=== PATIENT | male | born 1960 | race Caucasian/White ===

== ENCOUNTER 2017-08-23 21:48 | Inpatient (IN) | payer BC ==
[~2017-08-23] VITALS: Ht 167.6 cm; Wt 82.1 kg
[2017-08-23 21:54] VITALS: BP_SYST 164
[2017-08-23] MEDS ORDERED: NACL 0.9% 1,000 ML IV ONE ×2 (22:00→23:15)
[2017-08-23] MEDS ORDERED: LABETALOL 100 MG/ 20ML VIAL IVP ONE (22:00)
[2017-08-23] MEDS ORDERED: ASPIRIN 325 MG TABLET PO ONE (22:00)
[2017-08-23] MEDS ORDERED: DILTIAZEM HCL 25 MG/5 ML VIAL IVP ONE ×2 (22:15→22:45)
[2017-08-23 22:17] LABS: BASOPHILS # (AUTO) 0.1 K/uL (0.0-0.2); BASOPHILS % (AUTO) 1.8 % (0.0-2.0); EOSINOPHILS # (AUTO) 0.1 K/uL (0.0-0.4); EOSINOPHILS % (AUTO) 2.1 % (0.0-4.0); HEMATOCRIT 43.3 % (36-54); LYMPHOCYTES # (AUTO) 2.1 K/uL (1.0-5.5); LYMPHOCYTES % (AUTO) 42.6 % (20.5-51.5); MEAN CORPUSCULAR HEMOGLOBIN 32 pg (27-31); MEAN CORPUSCULAR HGB CONC 35 % (32-36); MEAN CORPUSCULAR VOLUME 93 fL (79.0-98.0); MONOCYTES # (AUTO) 0.5 K/uL (0.0-1.0); MONOCYTES % (AUTO) 9.7 % (1.7-9.3); NEUTROPHILS # (AUTO) 2.2 K/uL (1.8-7.7); NEUTROPHILS % (AUTO) 43.8 % (40.0-70.0); PLATELET COUNT (AUTO) 188 K/uL (130-430); RED BLOOD CELL COUNT(AUTO) 4.68 MIL/uL (4.2-6.2); RED CELL DISTRIBUTION WIDTH 12.2 % (9.0-15.0)
[2017-08-23 22:26] LABS: ANION GAP 15 (5-15); CALCIUM 8.2 mg/dL (8.4-11.0); CHLORIDE 103 mmol/L (98-107); CREATININE 1.16 mg/dL (0.55-1.30); GLUCOSE 107 mg/dL (70-99); POTASSIUM 3.5 mmol/L (3.5-5.1); SODIUM SERUM 141 mmol/L (136-145); UREA NITROGEN, BLOOD 19 mg/dL (8-21)
[2017-08-23 22:27] LABS: GFR AFRICAN AMERICAN 83 mL/min (>90)
[2017-08-23 22:35] LABS: ALANINE AMINOTRANSFERASE 48 U/L (12-78); ALBUMIN 4.1 g/dL (3.4-4.8); ASPARTATE AMINOTRANSFERASE 44 U/L (10-37); TOTAL BILIRUBIN 0.5 mg/dL (0.0-1.0)
[2017-08-23] MEDS ORDERED: LOSA100T11 PO (22:54)
[2017-08-23] MEDS ORDERED: LIP20 PO (22:54)
[2017-08-23] MEDS ORDERED: SILD50TA PO (22:54)
[2017-08-23] MEDS ORDERED: ASPI-1063 PO (22:54)
[2017-08-23] MEDS ORDERED: OMEP20CA10 PO (22:54)
[2017-08-23] MEDS ORDERED: AMIODARONE HCL 150 MG in D5W 97 ML IV ONE (23:00)
[2017-08-23] MEDS ORDERED: AMIODARONE HCL 150 MG/3ML VIAL ONE (23:03)
[2017-08-23] MEDS ORDERED: ACETAMINOPHEN 325 MG TABLET PO PRN (23:30)
[2017-08-23 23:43] VITALS: BP_SYST 122
[2017-08-23 23:43] LABS: BILIRUBIN,URINE NEGATIVE (NEGATIVE); BLOOD, URINE NEGATIVE (NEGATIVE); CLARITY/URINE CLEAR (CLEAR); COLOR,URINE YELLOW (YELLOW); GLUCOSE,URINE NEGATIVE (NEGATIVE); KETONES,URINE NEGATIVE (NEGATIVE); LEUKOCYTE ESTERASE ,URINE NEGATIVE (NEGATIVE); NITRITE, URINE NEGATIVE (NEGATIVE); PROTEIN URINE NEGATIVE (NEGATIVE); UROBILINOGEN,URINE 0.2 (0.2-1.0)
[2017-08-23 23:49] VITALS: BP_SYST 117
[2017-08-24] VITALS (19 sets, daily range): BP systolic 84–121
[2017-08-24 00:02] LABS: BARBITURATE, URINE NEGATIVE (NEG <=200); BENZODIAZEPINE, URINE NEGATIVE (NEG <=150); CANNABINOID, URINE NEGATIVE (NEG <=50); COCAINE, URINE NEGATIVE (NEG <=150); METHAMPHETAMINES SCREEN,URINE NEGATIVE (NEG <=500); OPIATE, URINE NEGATIVE (NEG <=100); PHENCYCLIDINE SCREEN,URINE NEGATIVE (NEG <=25); UR TRICYCLIC ANTIDEPRESSANTS NEGATIVE (NEG <=300); URINE AMPHETAMINE NEGATIVE (NEG <=500); URINE METHADONE NEGATIVE (NEG <=200); URINE OXYCODONE SCREEN NEGATIVE (NEG <=100); URINE PROPOXYPHENE SCREEN NEGATIVE (NEG <=300)
[2017-08-24] MEDS ORDERED: AMIODARONE HCL 200 MG TABLET ONE (00:21)
[2017-08-24] MEDS: AMIODARONE HCL 200 MG TABLET PO ONE ×2 (00:37→05:05)
[2017-08-24 06:02] LABS: ANION GAP 9 (5-15); CALCIUM 7.9 mg/dL (8.4-11.0); CHLORIDE 107 mmol/L (98-107); CREATININE 1.12 mg/dL (0.55-1.30); GLUCOSE 110 mg/dL (70-99); SODIUM SERUM 141 mmol/L (136-145); UREA NITROGEN, BLOOD 18 mg/dL (8-21)
[2017-08-24 06:08] LABS: BASOPHILS # (AUTO) 0.1 K/uL (0.0-0.2); BASOPHILS % (AUTO) 1.6 % (0.0-2.0); EOSINOPHILS # (AUTO) 0.1 K/uL (0.0-0.4); EOSINOPHILS % (AUTO) 1.5 % (0.0-4.0); HEMOGLOBIN 14.5 g/dL (14.0-18.0); LYMPHOCYTES # (AUTO) 1.6 K/uL (1.0-5.5); LYMPHOCYTES % (AUTO) 33.7 % (20.5-51.5); MEAN CORPUSCULAR HEMOGLOBIN 31 pg (27-31); MEAN CORPUSCULAR HGB CONC 34 % (32-36); MEAN CORPUSCULAR VOLUME 93 fL (79.0-98.0); MONOCYTES # (AUTO) 0.5 K/uL (0.0-1.0); MONOCYTES % (AUTO) 10.1 % (1.7-9.3); NEUTROPHILS # (AUTO) 2.4 K/uL (1.8-7.7); NEUTROPHILS % (AUTO) 53.1 % (40.0-70.0); PLATELET COUNT (AUTO) 172 K/uL (130-430); RED BLOOD CELL COUNT(AUTO) 4.64 MIL/uL (4.2-6.2); RED CELL DISTRIBUTION WIDTH 12.3 % (9.0-15.0); WHITE BLOOD COUNT (AUTO) 4.7 K/uL (4.8-10.8)
[2017-08-24 06:12] LABS: ALANINE AMINOTRANSFERASE 45 U/L (12-78); ALBUMIN 3.5 g/dL (3.4-4.8); ASPARTATE AMINOTRANSFERASE 40 U/L (10-37); TOTAL BILIRUBIN 0.4 mg/dL (0.0-1.0)
[2017-08-24 06:17] LABS: GFR AFRICAN AMERICAN 87 mL/min (>90)
[2017-08-24] MEDS ORDERED: AMIODARONE HCL 200 MG TABLET PO ONE (09:45)
[2017-08-24] MEDS ORDERED: APIXABAN 2.5 MG TABLET PO ONE (09:45)
[2017-08-24] MEDS: PANTOPRAZOLE SODIUM 40 MG TAB PO SCH (11:36)
[2017-08-24] MEDS: ASPIRIN 81 MG TABLET(ECOTRIN) PO SCH (11:36)
[2017-08-24] MEDS: AMIODARONE HCL 200 MG TABLET PO SCH ×2 (15:10→20:33)
[2017-08-24] MEDS ORDERED: ZOLPIDEM TARTRATE 5 MG TABLET PO PRN (16:15)
[2017-08-24] MEDS: APIXABAN 2.5 MG TABLET PO SCH (20:31)
[2017-08-24] MEDS ORDERED: ATORVASTATIN 20 MG TABLET PO SCH (21:00)
[2017-08-25 00:35] VITALS: BP_SYST 100
[2017-08-25 04:06] VITALS: BP_SYST 154
[2017-08-25 04:47] VITALS: BP_SYST 110
[2017-08-25 07:41] VITALS: BP_SYST 108
[2017-08-25] MEDS: APIXABAN 2.5 MG TABLET PO SCH (09:25)
[2017-08-25] MEDS: AMIODARONE HCL 200 MG TABLET PO SCH ×2 (09:27→14:55)
[2017-08-25] MEDS: ASPIRIN 81 MG TABLET(ECOTRIN) PO SCH (09:27)
[2017-08-25] MEDS: PANTOPRAZOLE SODIUM 40 MG TAB PO SCH (09:27)
[2017-08-25 11:09] VITALS: BP_SYST 132
[2017-08-25 12:21] VITALS: BP_SYST 154
[2017-08-25] MEDS ORDERED: APIX5TAB PO (14:26)
[2017-08-25] MEDS ORDERED: AMI200 PO (14:28)
== END 2017-08-25 15:00 | disposition home or self-care (01) | DRG 310 ==
LOC: SED 21:48 → SIC 23:15 → STU 08-24 17:25
PROVIDERS: ADMIT Internal Medicine; ATTEND Internal Medicine
DX: I48.0 Paroxysmal atrial fibrillation (principal); E78.5 Hyperlipidemia, unspecified; K22.70 Barrett's esophagus without dysplasia; E78.00 Pure hypercholesterolemia, unspecified; I10 Essential (primary) hypertension; K21.9 Gastro-esophageal reflux disease without esophagitis; Z87.11 Personal history of peptic ulcer disease; Z82.49 Family history of ischemic heart disease and other diseases of the circulatory system; Z98.1 Arthrodesis status; Z79.82 Long term (current) use of aspirin; Z79.899 Other long term (current) drug therapy
CPT/HCPCS: 36415; 71045; 80053; 80307; 81003; 83735-TC; 84439; 84443-TC; 84484; 85025; 87081; 93005; 93306; 96361; 96374; 96375; 99285; J0282; J3490